=== PATIENT | female | born 1955 | race Two or more races ===

== ENCOUNTER 2016-11-30 10:26 | Emergency (ER) | payer MEDICAID ==
[~2016-11-30] VITALS: Ht 160 cm; Wt 73.0 kg
[~2016-11-30 10:26] MED LIST: lantus SUBCUT; novolog SUBCUT
[2016-11-30] MEDS ORDERED: KETOROLAC 60MG/2ML VIAL IM ONE (10:45)
[2016-11-30] MEDS ORDERED: IPRATROPIUM BROMIDE (0.02%) 0.5MG/2.5ML NEB HHN STA (10:45)
[2016-11-30] MEDS ORDERED: ALBUTEROL (0.083%) 2.5MG/3ML NEB HHN STA (10:45)
[2016-11-30 11:30] LABS: BASOPHILS % 0.7 % (0.0-2.0); EOSINOPHILS % 1.2 % (0.0-5.0); HEMATOCRIT. 39.1 % (36.0-48.0); HEMOGLOBIN. 12.8 g/dL (12.0-16.0); LYMPHOCYTES % 16.7 % (20.0-50.0); MEAN CORPUSCULAR HEMOGLOBIN 27.6 pg (28.0-32.0); MEAN CORPUSCULAR HGB CONC 32.7 g/dL (31.0-37.0); MEAN CORPUSCULAR VOLUME 84.3 fL (81.0-99.0); MEAN PLATELET VOLUME 9.9 fl (7.4-10.4); MONOCYTES % 7.4 % (2.0-8.0); PLATELET 207 x1000/uL (130-400); RED BLOOD CELL COUNT 4.64 mill/uL (4.2-5.4); RED CELL DISTRIBUTION WIDTH 13.3 % (11.6-14.6)
[2016-11-30 11:35] LABS: CHLORIDE 107 mEq/L (98-107); INDEX HEMOLYSI 1 (1-3); INDEX ICTERIC 1 (1-4); INDEX LIPEMIC 1 (1-3)
[2016-11-30 11:44] LABS: ANION GAP 11; CALCIUM 8.2 mg/dL (8.5-10.1); CARBON DIOXIDE 26 mEq/L (21-32); UREA NITROGEN BLOOD 10 mg/dL (7-21); eGFR > 60 mL/min (>60)
[2016-11-30 11:45] VITALS: BP 113/68
== END 2016-11-30 12:23 | disposition home or self-care (01) ==
LOC: ER 10:44
DX: J32.9 Chronic sinusitis, unspecified (principal); B96.89 Other specified bacterial agents as the cause of diseases classified elsewhere; R05 Cough; E11.9 Type 2 diabetes mellitus without complications; I10 Essential (primary) hypertension; I48.91 Unspecified atrial fibrillation; Z79.4 Long term (current) use of insulin
CPT/HCPCS: 36415; 71010; 80048; 85025; 87804; 93005; 94640; 96372; 99285; J1885; J7611; Z7610

== ENCOUNTER 2017-11-06 08:54 | Inpatient (IN) | payer MEDICAID ==
[~2017-11-06] VITALS: Ht 154.9 cm; Wt 87.5 kg
[~2017-11-06 08:54] MED LIST changes: +ATOR20TA65 PO; +GABA-531 PO; +LOSA50TA20 PO; +METF10002 PO; +OMEP40CA34 PO; -lantus SUBCUT; -novolog SUBCUT
[2017-11-06 10:53] LABS: BASOPHILS % 0.8 % (0.0-2.0); EOSINOPHILS % 1.2 % (0.0-5.0); HEMOGLOBIN. 12.9 g/dL (12.0-16.0); LYMPHOCYTES % 21.9 % (20.0-50.0); MEAN CORPUSCULAR HEMOGLOBIN 26.9 pg (28.0-32.0); MEAN CORPUSCULAR VOLUME 83.5 fL (81.0-99.0); MEAN PLATELET VOLUME 9.1 fl (7.4-10.4); MONOCYTES % 6.2 % (2.0-8.0); NEUTROPHILS % 69.9 % (40.0-76.0); PLATELET 241 x1000/uL (130-400); RED BLOOD CELL COUNT 4.79 mill/uL (4.2-5.4)
[2017-11-06 10:58] LABS: PROTHROMBIN TIME 10.7 sec (9.4-11.6)
[2017-11-06 11:07] LABS: CHLORIDE 106 mEq/L (98-107); TROPONIN I < 0.02 ng/mL (0.00-0.04)
[2017-11-06 17:00] VITALS: BP 133/58
[2017-11-06 17:40] VITALS: BP 133/58
[2017-11-06] MEDS ORDERED: MEDICATION NOT ON FORMULARY EA (Metformin Hcl 1 TAB) PO SCH (19:00)
[2017-11-06] MEDS ORDERED: MEDICATION NOT ON FORMULARY EA (Omeprazole 1 CAP) PO SCH (19:00)
[2017-11-06 20:00] VITALS: BP 140/57
[2017-11-06] MEDS ORDERED: AMIO100T4 PO ×2 (20:30)
[2017-11-06] MEDS ORDERED: RIVA20TA PO (20:30)
[2017-11-06] MEDS ORDERED: DILT180C3 PO (20:30)
[2017-11-06] MEDS: DILTIAZEM HCL 180MG CAPSULE CD 24HR PO SCH (20:52)
[2017-11-06] MEDS: OMEPRAZOLE 20MG CAPSULE EXTENDED RELEASE PO SCH (20:53)
[2017-11-06] MEDS: LOSARTAN POTASSIUM 50 MG TABLET PO SCH (20:54)
[2017-11-06] MEDS ORDERED: ATORVASTATIN CALCIUM 20MG TABLET PO SCH (21:00)
[2017-11-06] MEDS ORDERED: GABAPENTIN 300MG CAPSULE PO SCH (21:00)
[2017-11-07 04:00] VITALS: BP 114/64
[2017-11-07] MEDS: OMEPRAZOLE 20MG CAPSULE EXTENDED RELEASE PO SCH (06:26)
[2017-11-07] MEDS ORDERED: METFORMIN HCL 500MG TABLET PO SCH (07:50)
[2017-11-07 08:00] VITALS: BP 141/65
[2017-11-07] MEDS ORDERED: GABAPENTIN 300MG CAPSULE PO SCH ×2 (09:00→12:00)
[2017-11-07] MEDS ORDERED: MEDICATION NOT ON FORMULARY EA (Amiodarone HCl 200 MG) PO SCH (09:00)
[2017-11-07] MEDS ORDERED: RIVAROXABAN 20 MG TABLET PO SCH (09:00)
[2017-11-07] MEDS ORDERED: AMIODARONE HCL 200 MG TABLET PO SCH (09:00)
[2017-11-07] MEDS: LOSARTAN POTASSIUM 50 MG TABLET PO SCH (09:09)
[2017-11-07] MEDS: DILTIAZEM HCL 180MG CAPSULE CD 24HR PO SCH (09:11)
[2017-11-07 11:57] VITALS: BP 121/58
[2017-11-07 12:00] VITALS: BP 121/58
== END 2017-11-07 12:20 | disposition home or self-care (01) | DRG 206 ==
LOC: ER 10:01 → 6EST 10:26 → ENRESERV 15:27
PROVIDERS: ADMIT Hospitalist; ATTEND Hospitalist
DX: T82.847A Pain due to cardiac prosthetic devices, implants and grafts, initial encounter (principal); I49.5 Sick sinus syndrome; E44.1 Mild protein-calorie malnutrition; I10 Essential (primary) hypertension; E11.9 Type 2 diabetes mellitus without complications; E78.5 Hyperlipidemia, unspecified; E78.00 Pure hypercholesterolemia, unspecified; I25.10 Atherosclerotic heart disease of native coronary artery without angina pectoris; K21.9 Gastro-esophageal reflux disease without esophagitis; I25.2 Old myocardial infarction; Z95.0 Presence of cardiac pacemaker; Z79.899 Other long term (current) drug therapy
CPT/HCPCS: 36415; 71045; 80053; 83880; 84484; 85025; 85610; 93005; 99285

== ENCOUNTER 2018-12-30 04:28 | Inpatient (IN) | payer MEDICAID ==
[~2018-12-30] VITALS: Ht 162.6 cm; Wt 93.4 kg
[2018-12-30] VITALS (57 sets, daily range): BP systolic 86–140; BP diastolic 39–100
[~2018-12-30 04:28] MED LIST changes: +AMIO100T4 PO; +BACL-141 MT; +CLOP75TA33 MT; +DILT30TA38 PO; +FURO40TA5 PO; +GEMF600T4 MT; +INSLIS SUBCUT; +INSU100I24 SQ; +LOSA50TA20 MT; -LOSA50TA20 PO; +METF-416 PO; -METF10002 PO; +METO25TA6 MT; -OMEP40CA34 PO; +PANT40TA4 MT; +RIVA20TA PO; +TRIC160 MT
[2018-12-30] MEDS ORDERED: SODIUM CHLORIDE 0.9% 1,000 ML IV ONE (04:44)
[2018-12-30] MEDS ORDERED: PROPOFOL 10MG/ML 100ML 100 ML IV ONE (04:45)
[2018-12-30] MEDS ORDERED: ETOMIDATE 2MG/ML 10ML VIAL IV ONE ×2 (04:45→04:55)
[2018-12-30] MEDS ORDERED: SODIUM CHLORIDE 0.9% 1000ML BAG (SEPSIS BOLUS) IV ONE (04:45)
[2018-12-30] MEDS ORDERED: VECURONIUM BROMIDE 10 MG/VIAL IV ONE ×2 (04:45→04:55)
[2018-12-30] MEDS ORDERED: VANCOMYCIN 1 G PREMIX 200 ML IV ONE (04:45)
[2018-12-30] MEDS ORDERED: PIPERACILLIN/TAZ 3.375G PREMIX 50 ML IV ONE (04:45)
[2018-12-30] MEDS ORDERED: SODIUM CHLORIDE 0.9% 10ML VIAL ONE (04:55)
[2018-12-30 05:32] LABS: BASOPHILS % 0.5 % (0.0-2.0); EOSINOPHILS % 1.6 % (0.0-5.0); HEMATOCRIT. 35.5 % (36.0-48.0); HEMOGLOBIN. 11.2 g/dL (12.0-16.0); LYMPHOCYTES % 21.9 % (20.0-50.0); MEAN CORPUSCULAR HEMOGLOBIN 26.9 pg (28.0-32.0); MEAN CORPUSCULAR VOLUME 85.5 fL (81.0-99.0); MEAN PLATELET VOLUME 9.4 fl (7.4-10.4); MONOCYTES % 6.7 % (2.0-8.0); NEUTROPHILS % 69.3 % (40.0-76.0); PLATELET 254 x1000/uL (130-400); RED BLOOD CELL COUNT 4.16 mill/uL (4.2-5.4); RED CELL DISTRIBUTION WIDTH 13.9 % (11.6-14.6)
[2018-12-30 05:40] LABS: CHLORIDE 105 mEq/L (98-107)
[2018-12-30 05:41] LABS: INR 1.2; PROTHROMBIN TIME 11.8 sec (9.6-11.0)
[2018-12-30 05:44] LABS: ETHANOL BLOOD < 10 mg/dL
[2018-12-30 05:48] LABS: CREATINE KINASE 807 IU/L (26-192)
[2018-12-30 05:52] LABS: CLARITY URINE CLEAR (CLEAR); COLOR URINE YELLOW (YELLOW); KETONES URINE NEGATIVE (NEGATIVE); LEUKOCYTE ESTERASE URINE NEGATIVE (NEGATIVE); NITRITE URINE POSITIVE (NEGATIVE); OCCULT BLOOD URINE TRACE (NEGATIVE); PROTEIN URINE NEGATIVE (NEGATIVE); SPECIFIC GRAVITY URINE 1.011 (1.005-1.030); UROBILINOGEN URINE 0.2 E.U./dL (0.2-1.0)
[2018-12-30 06:08] LABS: *AMPHETAMINES SCREEN URINE NEGATIVE (NEGATIVE); *BARBITURATES SCREEN URINE NEGATIVE (NEGATIVE); *BENZODIAZEPINES SCREEN URINE NEGATIVE (NEGATIVE); *COCAINE SCREEN URINE NEGATIVE (NEGATIVE); METHADONE URINE SCREEN NEGATIVE (NEGATIVE); OPIATES URINE SCREEN NEGATIVE (NEGATIVE)
[2018-12-30 06:09] LABS: CANNABINOID URINE SCREEN NEGATIVE (NEGATIVE); PHENCYCLIDINE URINE SCREEN NEGATIVE (NEGATIVE)
[2018-12-30 07:27] LABS: BG BASE EXCESS -3.7 mmol/L (-2.0-2.0); BG CARBOXYHEMOGLOBIN 0.3 % (0.5-1.5); BG DEOXYHEMOGLOBIN 0.6 % (0.0-5.0); BG FRACTION INSPIRED OXYGEN 100; BG HCO3 ACT 20.4 mmol/L (22.0-26.0); BG METHEMOGLOBIN 0.2 % (0.0-1.5); BG OXYGEN SATURATION 99.4 % (92.0-98.5); BG OXYHEMOGLOBIN 98.9 % (94.0-97.0); BG PCO2 33.9 mmHg (35.0-45.0); BG PEEP (cmH2O) 0 cmH2O; BG PH 7.397 (7.350-7.450); BG SAMPLE SITE LEFT BRACHIAL; BG TIDAL VOLUME(mL) 500 mL; BG VENT MODE VENT - A/C; BG VENT RATE 14 set
[2018-12-30] MEDS ORDERED: NOREPINEPHRINE 16 MG in DEXT 5% WATER 234 ML IV PRN (11:00)
[2018-12-30] MEDS: PROPOFOL 10MG/ML 100ML 100 ML IV PRN ×2 (11:05→17:29)
[2018-12-30] MEDS: DEXT 5%/0.45% NACL 1000ML 1,000 ML IV SCH ×2 (12:22→20:59)
[2018-12-30 12:34] LABS: CREATINE KINASE MB FRACTION 21.8 ng/mL (0.5-3.6)
[2018-12-30] MEDS ORDERED: PIPERACILLIN/TAZOBACTAM 3.375GM/50ML PREMIX IV SCH (14:00)
[2018-12-30] MEDS: PIPERACILLIN/TAZ 3.375G PREMIX 50 ML IV SCH ×3 (14:53→23:35)
[2018-12-30] MEDS: AMIODARONE HCL 200 MG TABLET PO SCH (14:53)
[2018-12-30] MEDS: IPRATROPIUM/ALBUTEROL 0.5-3(2.5)MG/3ML NEB HHN SCH ×3 (15:33→23:54)
[2018-12-30] MEDS ORDERED: DEXTROSE 50% WATER 50ML SYRINGE IV PRN (17:30)
[2018-12-30] MEDS: BLOOD SUGAR DIAGNOSTIC STRIP TEST SCH ×2 (17:36→20:59)
[2018-12-30] MEDS: INSULIN LISPRO 100 UNITS/ML SUBCUT SCH ×2 (17:39→21:00)
[2018-12-30 22:21] LABS: CREATINE KINASE MB FRACTION 12.7 ng/mL (0.5-3.6)
[2018-12-31] VITALS (100 sets, daily range): BP systolic 91–158; BP diastolic 36–94
[2018-12-31] MEDS: VANCOMYCIN 1 G PREMIX 200 ML IV SCH ×2 (02:00→20:50)
[2018-12-31] MEDS: IPRATROPIUM/ALBUTEROL 0.5-3(2.5)MG/3ML NEB HHN SCH ×5 (03:28→20:08)
[2018-12-31] MEDS: DEXT 5%/0.45% NACL 1000ML 1,000 ML IV SCH ×2 (06:31→17:00)
[2018-12-31] MEDS: PIPERACILLIN/TAZ 3.375G PREMIX 50 ML IV SCH ×3 (06:31→17:36)
[2018-12-31 06:51] LABS: CREATINE KINASE MB FRACTION 7.5 ng/mL (0.5-3.6)
[2018-12-31 07:41] LABS: BG BASE EXCESS -1.1 mmol/L (-2.0-2.0); BG CARBOXYHEMOGLOBIN 0.3 % (0.5-1.5); BG DEOXYHEMOGLOBIN 1.4 % (0.0-5.0); BG FRACTION INSPIRED OXYGEN 50; BG HCO3 ACT 21.3 mmol/L (22.0-26.0); BG METHEMOGLOBIN 0.3 % (0.0-1.5); BG OXYGEN SATURATION 98.6 % (92.0-98.5); BG PCO2 27.4 mmHg (35.0-45.0); BG PH 7.508 (7.350-7.450); BG PO2 186.4 mmHg (75.0-100.0); BG SAMPLE SITE RIGHT RADIAL; BG TIDAL VOLUME(mL) 550 mL; BG TOTAL HEMOGLOBIN 9.3 g/dL (12.0-18.0); BG VENT MODE VENT - A/C; BG VENT RATE 14 set
[2018-12-31] MEDS: BLOOD SUGAR DIAGNOSTIC STRIP TEST SCH ×4 (08:01→20:53)
[2018-12-31] MEDS: PANTOPRAZOLE SODIUM 40 MG/VIAL IV SCH (08:13)
[2018-12-31] MEDS: AMIODARONE HCL 200 MG TABLET PO SCH (08:13)
[2018-12-31] MEDS: INSULIN LISPRO 100 UNITS/ML SUBCUT SCH ×4 (08:15→21:29)
[2018-12-31] MEDS: PROPOFOL 10MG/ML 100ML 100 ML IV PRN (08:34)
[2018-12-31] MEDS ORDERED: ENOXAPARIN 30MG/0.3ML SYR SUBCUT SCH (09:00)
[2018-12-31] MEDS ORDERED: CLOPIDOGREL 75MG TABLET PO SCH (09:00)
[2018-12-31] MEDS ORDERED: ENOXAPARIN 40MG/0.4ML SYR SUBCUT ONE (09:00)
[2018-12-31 09:39] LABS: HEMATOCRIT 28.9 % (36.0-48.0); HEMOGLOBIN 9.3 g/dL (12.0-16.0); MEAN CORPUSCULAR HEMOGLOBIN 27.4 pg (28.0-32.0); PLATELET 193 x1000/uL (130-400); RED CELL DISTRIBUTION WIDTH 13.6 % (11.6-14.6)
[2018-12-31 09:54] LABS: CHLORIDE 115 mEq/L (98-107)
[2018-12-31 10:10] LABS: T4 FREE 1.11 ng/dL (0.76-1.46)
[2018-12-31 10:11] LABS: VITAMIN B12 SERUM 1661 pg/mL (211-911)
[2018-12-31 10:15] LABS: FOLIC ACID (FOLATE) SERUM > 20.00 ng/mL (>5.38)
[2018-12-31] MEDS ORDERED: PROPOFOL 10MG/ML 100ML 100 ML IV PRN (11:00)
[2018-12-31] MEDS ORDERED: POTASSIUM CHLORIDE 20MEQ/PACKET NG NR (13:00)
[2019-01-01] VITALS (56 sets, daily range): BP systolic 102–146; BP diastolic 47–70
[2019-01-01] MEDS: IPRATROPIUM/ALBUTEROL 0.5-3(2.5)MG/3ML NEB HHN SCH ×7 (00:04→20:53)
[2019-01-01] MEDS: PIPERACILLIN/TAZ 3.375G PREMIX 50 ML IV SCH ×5 (00:12→23:40)
[2019-01-01] MEDS: DEXT 5%/0.45% NACL 1000ML 1,000 ML IV SCH ×3 (02:52→16:00)
[2019-01-01 05:03] LABS: BASOPHILS % 0.6 % (0.0-2.0); EOSINOPHILS % 1.4 % (0.0-5.0); HEMATOCRIT. 27.8 % (36.0-48.0); HEMOGLOBIN. 9.1 g/dL (12.0-16.0); LYMPHOCYTES % 10.9 % (20.0-50.0); MEAN CORPUSCULAR HEMOGLOBIN 28.1 pg (28.0-32.0); MEAN CORPUSCULAR VOLUME 85.2 fL (81.0-99.0); MEAN PLATELET VOLUME 9.2 fl (7.4-10.4); MONOCYTES % 6.8 % (2.0-8.0); NEUTROPHILS % 80.3 % (40.0-76.0); PLATELET 165 x1000/uL (130-400); RED BLOOD CELL COUNT 3.26 mill/uL (4.2-5.4); RED CELL DISTRIBUTION WIDTH 14.2 % (11.6-14.6)
[2019-01-01 05:20] LABS: CHLORIDE 113 mEq/L (98-107)
[2019-01-01] MEDS: BLOOD SUGAR DIAGNOSTIC STRIP TEST SCH ×4 (07:50→21:43)
[2019-01-01] MEDS ORDERED: MAGNESIUM 2 G PREMIX 50 ML IV NR (08:00)
[2019-01-01] MEDS: PANTOPRAZOLE SODIUM 40 MG/VIAL IV SCH (08:10)
[2019-01-01] MEDS: AMIODARONE HCL 200 MG TABLET PO SCH (08:11)
[2019-01-01] MEDS: INSULIN LISPRO 100 UNITS/ML SUBCUT SCH ×4 (08:11→21:42)
[2019-01-01 09:21] LABS: BG BASE EXCESS -2.6 mmol/L (-2.0-2.0); BG CARBOXYHEMOGLOBIN 0.3 % (0.5-1.5); BG DEOXYHEMOGLOBIN 1.3 % (0.0-5.0); BG FRACTION INSPIRED OXYGEN 50; BG HCO3 ACT 20.8 mmol/L (22.0-26.0); BG METHEMOGLOBIN 0.3 % (0.0-1.5); BG OXYGEN SATURATION 98.7 % (92.0-98.5); BG OXYHEMOGLOBIN 98.1 % (94.0-97.0); BG PCO2 30.9 mmHg (35.0-45.0); BG PH 7.446 (7.350-7.450); BG PO2 201.3 mmHg (75.0-100.0); BG PRESSURE SUPPORT 8; BG SAMPLE SITE RIGHT RADIAL; BG TOTAL HEMOGLOBIN 9.3 g/dL (12.0-18.0); BG VENT MODE VENT - CPAP
[2019-01-01] MEDS ORDERED: VANCOMYCIN 1 G PREMIX 200 ML IV SCH (15:00)
[2019-01-02] VITALS (22 sets, daily range): BP systolic 115–151; BP diastolic 47–75
[2019-01-02] MEDS: IPRATROPIUM/ALBUTEROL 0.5-3(2.5)MG/3ML NEB HHN SCH ×6 (00:28→21:25)
[2019-01-02] MEDS: PIPERACILLIN/TAZ 3.375G PREMIX 50 ML IV SCH ×4 (06:42→23:44)
[2019-01-02] MEDS: DEXT 5%/0.45% NACL 1000ML 1,000 ML IV SCH (06:42)
[2019-01-02 06:48] LABS: CHLORIDE 111 mEq/L (98-107)
[2019-01-02] MEDS: PANTOPRAZOLE SODIUM 40 MG/VIAL IV SCH (10:15)
[2019-01-02] MEDS: AMIODARONE HCL 200 MG TABLET PO SCH (10:15)
[2019-01-02] MEDS ORDERED: POTASSIUM CHLORIDE 20MEQ TABLET SR PO NR (12:30)
[2019-01-02] MEDS: BLOOD SUGAR DIAGNOSTIC STRIP TEST SCH ×3 (12:57→21:19)
[2019-01-02] MEDS: INSULIN LISPRO 100 UNITS/ML SUBCUT SCH ×3 (12:58→21:21)
[2019-01-02] MEDS ORDERED: KCL 20MEQ/100ML PREMIX 100 ML IV NR (14:00)
[2019-01-03] VITALS (15 sets, daily range): BP systolic 113–146; BP diastolic 52–72
[2019-01-03] MEDS: IPRATROPIUM/ALBUTEROL 0.5-3(2.5)MG/3ML NEB HHN SCH ×6 (00:45→22:08)
[2019-01-03] MEDS: GUAIFENESIN 200MG/10ML SUGAR FREE UDC PO PRN ×2 (02:52→22:38)
[2019-01-03 05:52] LABS: CHLORIDE 111 mEq/L (98-107)
[2019-01-03] MEDS: PIPERACILLIN/TAZ 3.375G PREMIX 50 ML IV SCH ×3 (05:53→17:55)
[2019-01-03] MEDS: DEXT 5%/0.45% NACL 1000ML 1,000 ML IV SCH (05:55)
[2019-01-03 06:54] LABS: BASOPHILS % 0.6 % (0.0-2.0); HEMATOCRIT. 28.9 % (36.0-48.0); HEMOGLOBIN. 9.4 g/dL (12.0-16.0); LYMPHOCYTES % 9.8 % (20.0-50.0); MEAN CORPUSCULAR HEMOGLOBIN 27.7 pg (28.0-32.0); MEAN CORPUSCULAR VOLUME 85.5 fL (81.0-99.0); MEAN PLATELET VOLUME 9.4 fl (7.4-10.4); MONOCYTES % 4.9 % (2.0-8.0); NEUTROPHILS % 80.7 % (40.0-76.0); PLATELET 141 x1000/uL (130-400); RED BLOOD CELL COUNT 3.38 mill/uL (4.2-5.4); RED CELL DISTRIBUTION WIDTH 14.3 % (11.6-14.6)
[2019-01-03] MEDS: BLOOD SUGAR DIAGNOSTIC STRIP TEST SCH ×3 (07:50→21:12)
[2019-01-03] MEDS: PANTOPRAZOLE SODIUM 40 MG/VIAL IV SCH (08:51)
[2019-01-03] MEDS: AMIODARONE HCL 200 MG TABLET PO SCH (08:51)
[2019-01-03] MEDS: INSULIN LISPRO 100 UNITS/ML SUBCUT SCH ×4 (08:52→21:15)
[2019-01-03] MEDS ORDERED: VANCOMYCIN 750 MG PREMIX 150 ML IV SCH (10:00)
[2019-01-03] MEDS ORDERED: POTASSIUM CHLORIDE 20MEQ TABLET SR PO NR (12:30)
[2019-01-04] VITALS (7 sets, daily range): BP systolic 101–158; BP diastolic 44–80
[2019-01-04] MEDS: PIPERACILLIN/TAZ 3.375G PREMIX 50 ML IV SCH ×4 (00:08→18:06)
[2019-01-04] MEDS: IPRATROPIUM/ALBUTEROL 0.5-3(2.5)MG/3ML NEB HHN SCH ×5 (01:40→21:33)
[2019-01-04] MEDS: DEXT 5%/0.45% NACL 1000ML 1,000 ML IV SCH (05:52)
[2019-01-04] MEDS: INSULIN LISPRO 100 UNITS/ML SUBCUT SCH ×4 (07:17→22:09)
[2019-01-04] MEDS: BLOOD SUGAR DIAGNOSTIC STRIP TEST SCH ×4 (07:17→21:00)
[2019-01-04] MEDS: AMIODARONE HCL 200 MG TABLET PO SCH (09:00)
[2019-01-04] MEDS: PANTOPRAZOLE SODIUM 40 MG/VIAL IV SCH (09:52)
[2019-01-04] MEDS: APIXABAN 5 MG TABLET PO SCH (14:44)
[2019-01-05] VITALS: BP 127/59
[2019-01-05] MEDS: PIPERACILLIN/TAZ 3.375G PREMIX 50 ML IV SCH ×2 (00:13→05:45)
[2019-01-05] MEDS: APIXABAN 5 MG TABLET PO SCH ×2 (00:13→09:00)
[2019-01-05] MEDS: IPRATROPIUM/ALBUTEROL 0.5-3(2.5)MG/3ML NEB HHN SCH ×5 (00:26→17:40)
[2019-01-05 04:00] VITALS: BP 118/41
[2019-01-05 05:58] LABS: BASOPHILS % 1.1 % (0.0-2.0); EOSINOPHILS % 4.2 % (0.0-5.0); HEMOGLOBIN. 8.5 g/dL (12.0-16.0); LYMPHOCYTES % 15.1 % (20.0-50.0); MEAN CORPUSCULAR HEMOGLOBIN 28.1 pg (28.0-32.0); MEAN CORPUSCULAR VOLUME 86.2 fL (81.0-99.0); MONOCYTES % 6.3 % (2.0-8.0); NEUTROPHILS % 73.3 % (40.0-76.0); PLATELET 88 x1000/uL (130-400); RED BLOOD CELL COUNT 3.01 mill/uL (4.2-5.4)
[2019-01-05 06:25] LABS: CHLORIDE 108 mEq/L (98-107)
[2019-01-05] MEDS: BLOOD SUGAR DIAGNOSTIC STRIP TEST SCH ×3 (06:26→17:54)
[2019-01-05] MEDS: INSULIN LISPRO 100 UNITS/ML SUBCUT SCH ×3 (06:30→18:06)
[2019-01-05 08:20] VITALS: BP 119/51
[2019-01-05] MEDS: AMIODARONE HCL 200 MG TABLET PO SCH (09:18)
[2019-01-05] MEDS: PANTOPRAZOLE SODIUM 40 MG/VIAL IV SCH (09:19)
[2019-01-05 11:56] VITALS: BP 139/55
[2019-01-05] MEDS ORDERED: MAGNESIUM 2 G PREMIX 50 ML IV NR (15:00)
[2019-01-05 15:57] VITALS: BP 105/57
[2019-01-05 16:00] VITALS: BP 105/57
== END 2019-01-05 20:40 | disposition home health service (06) | DRG 720 ==
LOC: ER 04:44 → CVICU 06:03 → EDBEDREQSVC 06:06 → EDBEDREQTM 06:06 → EDBEDREQ 06:06 → ENRESERV 08:28 → 8WST 01-03 17:15
PROVIDERS: ADMIT Internal Medicine; ATTEND Internal Medicine
PROC: 5A1945Z Respiratory Ventilation, 24-96 Consecutive Hours (ICD-10-PCS; principal; 2018-12-30)
PROC: 0BH17EZ Insertion of Endotracheal Airway into Trachea, Via Natural or Artificial Opening (ICD-10-PCS; 2018-12-30)
PROC: 4B02XSZ Measurement of Cardiac Pacemaker, External Approach (ICD-10-PCS; 2018-12-30)
PROC: 02HV33Z Insertion of Infusion Device into Superior Vena Cava, Percutaneous Approach (ICD-10-PCS; 2018-12-30)
PROC: B548ZZA Ultrasonography of Superior Vena Cava, Guidance (ICD-10-PCS; 2018-12-30)
PROC: 4A00X4Z Measurement of Central Nervous Electrical Activity, External Approach (ICD-10-PCS; 2018-12-31)
DX: A41.9 Sepsis, unspecified organism (principal); I21.4 Non-ST elevation (NSTEMI) myocardial infarction; J96.00 Acute respiratory failure, unspecified whether with hypoxia or hypercapnia; G92 Toxic encephalopathy; Z99.11 Dependence on respirator [ventilator] status; J18.9 Pneumonia, unspecified organism; E46 Unspecified protein-calorie malnutrition; J44.0 Chronic obstructive pulmonary disease with (acute) lower respiratory infection; E11.40 Type 2 diabetes mellitus with diabetic neuropathy, unspecified; E87.6 Hypokalemia; B96.20 Unspecified Escherichia coli [E. coli] as the cause of diseases classified elsewhere; D69.6 Thrombocytopenia, unspecified; Z16.12 Extended spectrum beta lactamase (ESBL) resistance; I48.91 Unspecified atrial fibrillation; I95.9 Hypotension, unspecified; J98.11 Atelectasis; N28.9 Disorder of kidney and ureter, unspecified; I31.3 Pericardial effusion (noninflammatory); M62.82 Rhabdomyolysis; N39.0 Urinary tract infection, site not specified; E78.5 Hyperlipidemia, unspecified; I25.10 Atherosclerotic heart disease of native coronary artery without angina pectoris; I10 Essential (primary) hypertension; E78.00 Pure hypercholesterolemia, unspecified; Z95.0 Presence of cardiac pacemaker; Z87.891 Personal history of nicotine dependence; Z79.899 Other long term (current) drug therapy; Z68.35 Body mass index [BMI] 35.0-35.9, adult; Z78.1 Physical restraint status; Z79.4 Long term (current) use of insulin
CPT/HCPCS: 31500; 36415; 36569; 36573; 36600; 70551; 71045; 71250; 74176; 80048; 80202; 80305; 80307; 80320; 80329; 82140; 82375; 82550; 82553; 82607; 82746; 82805; 82962; 83036; 83605; 83735; 84145; 84439; 84443; 84478; 84481; 84484; 85027; 87070; 87077; 87186; 92610; 93005; 93306; 94003; 94640; 96365; 96367; 96375; 97116; 97162; 99291; A6261; C1725; C9113; J1815; J2543; J2704; J3370; J3475; J3480; J3490; J7030; J7050; J7620; A4315; G0480